=== PATIENT | female | born 1985 | race African-American/Black ===

== ENCOUNTER 2017-05-06 11:00 | Emergency (ER) | payer SELFPAY ==
[~2017-05-06] VITALS: Ht 162.6 cm; Wt 59.0 kg
[2017-05-06] MEDS ORDERED: DEXAMETHASONE 10 MG/ML VIAL IM ONE (12:45)
[2017-05-06] MEDS ORDERED: PENICILLIN G BENZATHINE 1,200,000 UNITS/2ML SYR IM ONE (12:45)
[2017-05-06] MEDS ORDERED: VISCOUS LIDOCAINE 2% 15 ML UDC MM PRN (13:00)
[2017-05-06 13:10] VITALS: BP 111/61
== END 2017-05-06 13:11 | disposition home or self-care (01) ==
LOC: ER 11:00
DX: J02.9 Acute pharyngitis, unspecified (principal)
CPT/HCPCS: 81025; 96372; 99284; J0561; J1100

== ENCOUNTER 2017-10-20 07:08 | Emergency (ER) | payer OTHER ==
[~2017-10-20] VITALS: Ht 172.7 cm; Wt 61.0 kg
[2017-10-20] MEDS ORDERED: KETOROLAC 30MG/ML VIAL IV STA (07:57)
[2017-10-20] MEDS ORDERED: ACETAMINOPHEN 325MG TABLET PO STA (07:57)
[2017-10-20] MEDS ORDERED: SODIUM CHLORIDE 0.9% 1000ML BAG (SEPSIS BOLUS) IV ONE (08:00)
[2017-10-20 08:40] LABS: HEMATOCRIT. 37.9 % (36.0-48.0); HEMOGLOBIN. 12.8 g/dL (12.0-16.0); MEAN CORPUSCULAR HEMOGLOBIN 27.1 pg (28.0-32.0); MEAN CORPUSCULAR VOLUME 80.1 fL (81.0-99.0); MEAN PLATELET VOLUME 8.1 fl (7.4-10.4); PLATELET 298 x1000/uL (130-400); RED BLOOD CELL COUNT 4.73 mill/uL (4.2-5.4); RED CELL DISTRIBUTION WIDTH 13.8 % (11.6-14.6)
[2017-10-20 08:49] LABS: CHLORIDE 102 mEq/L (98-107); INR 1.2; PROTHROMBIN TIME 11.9 sec (9.1-11.1)
[2017-10-20 09:48] LABS: PLATELET ESTIMATE NORMAL
[2017-10-20 10:20] LABS: CLARITY URINE CLEAR (CLEAR); COLOR URINE YELLOW (YELLOW); KETONES URINE 1+ (NEGATIVE); LEUKOCYTE ESTERASE URINE NEGATIVE (NEGATIVE); NITRITE URINE POSITIVE (NEGATIVE); OCCULT BLOOD URINE 1+ (NEGATIVE); PH URINE 5.5 (4.5-8.0); PROTEIN URINE NEGATIVE (NEGATIVE); SPECIFIC GRAVITY URINE 1.021 (1.005-1.030); UROBILINOGEN URINE 0.2 E.U./dL (0.2-1.0)
[2017-10-20] MEDS ORDERED: CEFTRIAXONE 1 G PREMIX 50 ML IV NR (10:30)
[2017-10-20 11:01] VITALS: BP 98/65
== END 2017-10-20 11:53 | disposition home or self-care (01) ==
LOC: ER 07:31 → CANBEDREQ 13:42
DX: N39.0 Urinary tract infection, site not specified (principal); R00.0 Tachycardia, unspecified; D72.829 Elevated white blood cell count, unspecified; R50.9 Fever, unspecified; J02.9 Acute pharyngitis, unspecified; M79.1 Myalgia; Z98.890 Other specified postprocedural states
CPT/HCPCS: 36415; 71045; 80053; 81003; 81025; 83605; 85025; 85610; 87040; 87070; 87086; 87430; 93005; 96365; 96375; 99285; J0696; J1885; J7030

== ENCOUNTER 2017-10-20 19:47 | Emergency (ER) | payer OTHER ==
[~2017-10-20] VITALS: Ht 162.6 cm; Wt 59.0 kg
[2017-10-20] MEDS ORDERED: SODIUM CHLORIDE 0.9% 1,000 ML IV ONE (21:42)
[2017-10-20] MEDS ORDERED: KETOROLAC 30MG/ML VIAL IV STA (21:42)
[2017-10-20] MEDS ORDERED: ACETAMINOPHEN 325MG TABLET PO STA (21:42)
[2017-10-20 22:54] VITALS: BP 112/81
== END 2017-10-20 22:50 | disposition home or self-care (01) ==
LOC: ER 19:47
DX: N30.90 Cystitis, unspecified without hematuria (principal); J02.9 Acute pharyngitis, unspecified
CPT/HCPCS: 99283; J1885; J7030; Z7610

== ENCOUNTER 2021-03-27 08:38 | Emergency (ER) | payer OTHER ==
[~2021-03-27] VITALS: Ht 167.6 cm; Wt 63.0 kg
[2021-03-27] MEDS ORDERED: MOBI7 MT (09:03)
[2021-03-27] MEDS ORDERED: KETOROLAC 60MG/2ML VIAL IM ONE (09:15)
[2021-03-27 09:30] VITALS: BP 110/75
== END 2021-03-27 09:43 | disposition home or self-care (01) ==
LOC: ER 08:38
DX: J02.8 Acute pharyngitis due to other specified organisms (principal); M54.9 Dorsalgia, unspecified; G89.29 Other chronic pain
CPT/HCPCS: 96372; 99283; J1885

== ENCOUNTER 2021-05-23 08:59 | Emergency (ER) | payer OTHER ==
[~2021-05-23] VITALS: Ht 152.4 cm; Wt 60.0 kg
[~2021-05-23 08:59] MED LIST: MOBI7 MT
[2021-05-23 09:04] VITALS: BP 136/68
[2021-05-23] MEDS ORDERED: CEFTRIAXONE SODIUM 500 MG/VIAL IM ONE (09:30)
[2021-05-23] MEDS ORDERED: LIDOCAINE HCL 1% 20ML VIAL (Pyxis) INJ INFIL ONE (09:30)
[2021-05-23 09:41] LABS: CLARITY URINE CLOUDY (CLEAR); COLOR URINE YELLOW (YELLOW); KETONES URINE NEGATIVE (NEGATIVE); LEUKOCYTE ESTERASE URINE 3+ (NEGATIVE); NITRITE URINE NEGATIVE (NEGATIVE); OCCULT BLOOD URINE 1+ (NEGATIVE); PH URINE 5.5 (4.5-8.0); PROTEIN URINE TRACE (NEGATIVE); UROBILINOGEN URINE 0.2 E.U./dL (0.2-1.0)
[2021-05-23] MEDS ORDERED: IBUP-2028 MT (11:37)
[2021-05-23] MEDS ORDERED: METR500T MT (11:37)
[2021-05-23] MEDS ORDERED: DOXY100C5 MT (11:37)
[2021-05-23] MEDS ORDERED: NITR-87 MT (11:37)
[2021-05-26 04:09] LABS: NEISSERIA GONORRHOEAE NAA Negative (Negative)
== END 2021-05-23 12:04 | disposition home or self-care (01) ==
LOC: ER 08:59
DX: R30.0 Dysuria (principal); N89.8 Other specified noninflammatory disorders of vagina; N72 Inflammatory disease of cervix uteri; Z98.890 Other specified postprocedural states
CPT/HCPCS: 81003; 87077; 87086; 87186; 87210; 87491; 87591; 96372; 99283; J0696; J3490; Z7610

== ENCOUNTER 2022-01-10 11:33 | Emergency (ER) | payer OTHER ==
[~2022-01-10] VITALS: Ht 152.4 cm; Wt 64.0 kg
[~2022-01-10 11:33] MED LIST changes: +DOXY100C5 MT; +IBUP-2028 MT; +METR500T MT; +NITR-87 MT
[2022-01-10 11:38] VITALS: BP 125/75
[2022-01-10] MEDS ORDERED: TETRACAINE 0.5% OPHTH DROPS 4ML LEFTEYE ONE (13:15)
[2022-01-10] MEDS ORDERED: FLUORESCEIN SODIUM 1MG/STRIP LEFTEYE ONE (13:15)
[2022-01-10] MEDS ORDERED: NAPHADR LEFTEYE (13:56)
[2022-01-10] MEDS ORDERED: CIPR5DRO LEFTEYE (13:58)
[2022-01-10] MEDS ORDERED: CIPROFLOXACIN 0.3% OPHTH SOLN 2.5ML LEFTEYE SCH (17:00)
== END 2022-01-10 14:17 | disposition home or self-care (01) ==
LOC: ER 11:33
DX: H10.32 Unspecified acute conjunctivitis, left eye (principal); Z98.890 Other specified postprocedural states
CPT/HCPCS: 81025; 99283

== ENCOUNTER 2024-07-31 01:24 | Emergency (ER) | payer SELFPAY ==
[~2024-07-31] VITALS: Ht 172.7 cm; Wt 66.0 kg
[~2024-07-31 01:24] MED LIST changes: +CIPR5DRO LEFTEYE; +NAPHADR LEFTEYE
[2024-07-31 01:42] VITALS: O2SAT 100
[2024-07-31 04:24] LABS: BASOPHILS % 0.9 % (0.0-2.0); HEMATOCRIT. 40.1 % (36.0-48.0); HEMOGLOBIN. 12.8 g/dL (12.0-16.0); LYMPHOCYTES % 38.6 % (20.0-50.0); MEAN CORPUSCULAR HEMOGLOBIN 26.1 pg (28.0-32.0); MEAN CORPUSCULAR HGB CONC 31.9 g/dL (31.0-37.0); MEAN CORPUSCULAR VOLUME 81.9 fL (81.0-99.0); MEAN PLATELET VOLUME 7.9 fl (7.4-10.4); MONOCYTES % 6.1 % (2.0-8.0); NEUTROPHILS % 49.4 % (40.0-76.0); PLATELET 299 x1000/uL (130-400); RED CELL DISTRIBUTION WIDTH 14.3 % (11.6-14.6); WHITE BLOOD COUNT 4.8 x1000/uL (4.5-11.0)
[2024-07-31 04:30] LABS: CHLORIDE 103 mEq/L (98-107); POTASSIUM 3.6 mEq/L (3.5-5.1); SODIUM 139 mEq/L (136-145)
[2024-07-31 04:31] LABS: CALCIUM 9.2 mg/dL (8.7-10.4); CARBON DIOXIDE 27 mEq/L (21-32)
[2024-07-31 04:36] LABS: CREATININE 0.8 mg/dL (0.6-1.0); GLUCOSE 88 mg/dL (70-105); UREA NITROGEN BLOOD 12 mg/dL (9-23)
[2024-07-31 04:38] LABS: ALANINE AMINOTRANSFERASE 11 IU/L (10-49); ALBUMIN 4.3 g/dL (3.2-4.8); ASPARTATE AMINOTRANSFERASE 16 IU/L (<34); BILIRUBIN DIRECT < 0.1 mg/dL (<=3.0); PROTHROMBIN TIME 11.1 sec (9.6-11.0)
[2024-07-31 04:39] LABS: PROTEIN TOTAL 7.4 g/dL (6.0-8.3)
[2024-07-31 04:40] LABS: BILIRUBIN TOTAL 0.3 mg/dL (0.1-1.0)
[2024-07-31] MEDS ORDERED: HYDR453.3 TP (04:58)
[2024-07-31 05:48] VITALS: BP 105/69; PULSE 84; RESP 18; TEMP 36.8; O2SAT 98
[2024-07-31 06:03] LABS: HCG SCREEN NEGATIVE
== END 2024-07-31 05:52 | disposition home or self-care (01) ==
LOC: ER 01:24
DX: K64.9 Unspecified hemorrhoids (principal); I89.1 Lymphangitis; Z79.1 Long term (current) use of non-steroidal anti-inflammatories (NSAID); Z79.899 Other long term (current) drug therapy; Z98.890 Other specified postprocedural states
CPT/HCPCS: 36415; 80048; 80076; 84703; 85025; 99283